=== PATIENT | male | born 1990 | race African-American/Black ===

== ENCOUNTER 2019-10-07 22:47 | Emergency (ER) | payer OTHER ==
[~2019-10-07] VITALS: Ht 180.3 cm; Wt 83.9 kg
[2019-10-07] MEDS ORDERED: IBUPROFEN 400 MG TABLET PO ONE (23:30)
[2019-10-07] MEDS ORDERED: IBUPROFEN 400 MG TABLET ONE (23:38)
[2019-10-07] MEDS ORDERED: HYDROCODONE/APAP 5/325MG 1 EACH TABLET ONE (23:59)
[2019-10-08] MEDS ORDERED: HYDROCODONE/APAP 5/325MG 1 EACH TABLET PO ONE
--- NOTE | 2019-10-08 00:10 | NUR ---
Patient discharged to home in stable condition. Written and verbal after care instructions given. Patient verbalizes understanding of instruction and RX. Pt given crutches, ambulated through E.D. before leaving.
[2019-10-08 00:48] VITALS: BP 127/68
== END 2019-10-08 00:31 | disposition home or self-care (01) ==
LOC: ER 22:50
DX: S80.02XA Contusion of left knee, initial encounter (principal); M54.5 Low back pain; W05.1XXA Fall from non-moving nonmotorized scooter, initial encounter; Y93.89 Activity, other specified; Y92.488 Other paved roadways as the place of occurrence of the external cause; Y99.8 Other external cause status
CPT/HCPCS: 72100-TC; 73564-TC

== ENCOUNTER 2020-10-20 12:25 | Emergency (ER) | payer OTHER ==
[~2020-10-20] VITALS: Ht 180.3 cm; Wt 83.9 kg
--- NOTE | 2020-10-20 12:40 | NUR ---
The patient bibs for c/o right leg pain concern about DVT. Rates pain 5/10. In room air and denies SOB. Respiration regular and unlabored. Will continue to monitor the patient.
[2020-10-20 13:48] VITALS: BP 132/76
--- NOTE | 2020-10-20 13:48 | NUR ---
Patient discharged to home in stable condition. Written and verbal after care instructions given. Patient verbalizes understanding of instruction.
== END 2020-10-20 13:49 | disposition home or self-care (01) ==
LOC: ER 12:25
DX: M79.661 Pain in right lower leg (principal); R22.41 Localized swelling, mass and lump, right lower limb
CPT/HCPCS: 93971-TC